=== PATIENT | female | born 1965 | race Caucasian/White ===

== ENCOUNTER → 2020-02-08 | Outpatient (CLI) | payer OTHER | END | disposition home or self-care (01) | LOC: CFH 15:11 | PROVIDERS: ATTEND Obstetrics & Gynecology Gynecology | DX: Z12.31 Encounter for screening mammogram for malignant neoplasm of breast (principal) | CPT/HCPCS: 77067 ==

== ENCOUNTER → 2020-03-10 | Outpatient (CLI) | payer OTHER ==
[~2020-03-10] MED LIST: ALBU8.5H8 INH; FLUT1DIS3 INH; LEVO125T PO; LIOT5TAB11 PO; ZAFI20TA12 PO
[2020-03-10 15:00] LABS: BASOPHILS % (AUTO) 1 % (0-1); EOSINOPHILS % (AUTO) 7 % (1-7); LYMPHOCYTES % (AUTO) 38 % (22-44); MEAN CORPUSCULAR HEMOGLOBIN 32.2 pg (27.0-34.8); MEAN CORPUSCULAR HGB CONC 33.8 g/dL (32.4-35.8); MEAN PLATELET VOLUME 8.7 fL (7.4-10.4); MONOCYTES % (AUTO) 8 % (2-9); NEUTROPHILS % (AUTO) 46 % (42-75); PLATELET COUNT 219 x10^3/uL (130-400); RED BLOOD COUNT 4.53 x10^6/uL (3.82-5.3); RED CELL DISTRIBUTION WIDTH 12.7 % (9.6-15.2)
[2020-03-10 15:03] LABS: MD NO
[2020-03-10 15:04] LABS: ALANINE AMINOTRANSFERASE 90 U/L (12-78); ALBUMIN 3.8 g/dL (3.4-5.0); ANION GAP 5 mmol/L (5-15); CALCIUM 8.9 mg/dL (8.5-10.1); CHLORIDE 107 mmol/L (98-107); CREATININE 0.93 mg/dL (0.55-1.02)
[2020-03-10 15:08] LABS: ALKALINE PHOSPHATASE 79 U/L (45-117); BILIRUBIN,TOTAL 0.3 mg/dL (0.2-1.0); TOTAL PROTEIN 7.6 g/dL (6.4-8.2)
[2020-03-10 15:45] LABS: MICROSCOPIC AUTO
== END | disposition home or self-care (01) ==
LOC: STAR 13:46
PROVIDERS: ATTEND Obstetrics & Gynecology Gynecology
DX: Z01.818 Encounter for other preprocedural examination (principal); N93.9 Abnormal uterine and vaginal bleeding, unspecified; N80.0 Endometriosis of uterus; N81.10 Cystocele, unspecified; R32 Unspecified urinary incontinence; N94.6 Dysmenorrhea, unspecified; N81.6 Rectocele
CPT/HCPCS: 36415; 71046; 80053; 81001; 84702; 85025; 87077; 87086; 93005

== ENCOUNTER 2020-03-20 05:40 | Day surgery (SDC) | payer OTHER ==
[~2020-03-20] VITALS: Ht 154.9 cm; Wt 98.0 kg
[2020-03-20] MEDS ORDERED: CHLORHEXIDINE 15 ML UDC MM ONE (06:30)
[2020-03-20] MEDS ORDERED: LIDOCAINE-MPF 1%, 2ML INFIL ONE (06:30)
[2020-03-20] MEDS ORDERED: LACTATED RINGERS 1,000 ML IV SCH (06:30)
[2020-03-20] MEDS ORDERED: MIDAZOLAM 1 MG/ML, 2ML ONE (07:17)
[2020-03-20] MEDS ORDERED: FENTANYL PF 250 MCG/5ML ONE ×2 (07:19→08:28)
[2020-03-20] MEDS ORDERED: PROPOFOL 10 MG/ML, 20ML ONE (07:20)
[2020-03-20] MEDS ORDERED: ROCURONIUM 10MG/ML,5ML ONE (07:21)
[2020-03-20] MEDS ORDERED: ACETAMINOPHEN 500 MG TABLET PO STA (07:21)
[2020-03-20] MEDS ORDERED: BUPIVACAINE/PF 0.25% ONE (07:21)
[2020-03-20] MEDS ORDERED: DIAZEPAM 5 MG TABLET PO STA (07:21)
[2020-03-20] MEDS ORDERED: MANNITOL PMX 20% 500 ML ONE (07:22)
[2020-03-20] MEDS ORDERED: EPINEPHRINE 1 MG/ML, 1ML ONE ×2 (07:22→08:44)
[2020-03-20] MEDS ORDERED: DIAZEPAM 5 MG TABLET ONE (07:25)
[2020-03-20] MEDS ORDERED: ACETAMINOPHEN 500 MG TABLET ONE (07:25)
[2020-03-20] MEDS ORDERED: CEFAZOLIN 1,000 MG ONE ×2 (07:42→07:49)
[2020-03-20] MEDS ORDERED: SUGAMMADEX 200 MG/2 ML IVPush ONE (07:42)
[2020-03-20] MEDS ORDERED: DEXAMETHASONE 4 MG/ML, 1ML ONE ×2 (07:42→07:49)
[2020-03-20] MEDS ORDERED: ONDANSETRON 2MG/ML, 2ML ONE (07:42)
[2020-03-20] MEDS ORDERED: BUPIVACAINE/PF-EPI 0.25% 1:200K INFIL ONE (07:58)
[2020-03-20] MEDS ORDERED: HYDROmorphone 1 MG/ML, 1ML INJ IVPush PRN (08:00)
[2020-03-20] MEDS ORDERED: DIAZEPAM 5 MG/ML, 2ML IVPush PRN (08:00)
[2020-03-20] MEDS ORDERED: FENTANYL PF 100 MCG/2ML IV PRN (08:00)
[2020-03-20] MEDS ORDERED: MIDAZOLAM 1 MG/ML, 2ML IV PRN (08:00)
[2020-03-20] MEDS ORDERED: ALBUTEROL SULFATE 2.5 MG/3 ML NPPB PRN (08:00)
[2020-03-20] MEDS ORDERED: EPHEDRINE 50 MG/ML, 1ML IVPush PRN (08:00)
[2020-03-20] MEDS ORDERED: LABETALOL 5MG/ML, 20ML IV PRN (08:00)
[2020-03-20] MEDS ORDERED: ONDANSETRON 2MG/ML, 2ML IVPush PRN (08:00)
[2020-03-20] MEDS ORDERED: PROMETHAZINE 12.5 MG SUPP PR PRN (08:00)
[2020-03-20] MEDS ORDERED: OXYcodone 5 MG/5 ML ORAL.SOL UDC PO PRN (08:00)
[2020-03-20] MEDS ORDERED: MEPERIDINE/PF 25MG/0.5ML IVPush PRN (08:00)
[2020-03-20] MEDS ORDERED: hydrALAzine 20 MG/ML, 1ML IV PRN (08:00)
[2020-03-20] MEDS ORDERED: PROMETHAZINE 25 MG/ML, 1ML IVPush PRN (08:00)
[2020-03-20] MEDS ORDERED: DIPHENHYDRAMINE 50 MG/ML, 1ML IVPush PRN (08:00)
[2020-03-20] MEDS ORDERED: LIDOCAINE/PF 1%, 30ML ONE (08:44)
[2020-03-20] MEDS ORDERED: NEOMY/POLYMYXIN B GU IRR. 1 ML ONE (08:51)
[2020-03-20] MEDS ORDERED: LIDOCAINE 1%-EPI 1:100K, 30ML INFIL ONE (08:55)
[2020-03-20] MEDS ORDERED: NEOMY/POLYMYXIN B GU IRR. 1 ML IRRIG ONE (08:55)
[2020-03-20] MEDS ORDERED: FENTANYL PF 100 MCG/2ML ONE (10:36)
== END 2020-03-20 18:00 | disposition home or self-care (01) ==
LOC: OUT 05:40
PROVIDERS: ATTEND Obstetrics & Gynecology Gynecology
DX: N93.9 Abnormal uterine and vaginal bleeding, unspecified (principal); N94.6 Dysmenorrhea, unspecified; N81.4 Uterovaginal prolapse, unspecified; N80.0 Endometriosis of uterus; N83.8 Other noninflammatory disorders of ovary, fallopian tube and broad ligament; R32 Unspecified urinary incontinence; J45.909 Unspecified asthma, uncomplicated; E89.0 Postprocedural hypothyroidism; Z20.828 Contact with and (suspected) exposure to other viral communicable diseases; Z79.890 Hormone replacement therapy; Z79.899 Other long term (current) drug therapy; Z85.850 Personal history of malignant neoplasm of thyroid; Z98.51 Tubal ligation status; Z98.890 Other specified postprocedural states
CPT/HCPCS: 36415; 57260; 57288; 57425; 58573; 86850; 86900; 87635; 88307; C1771; J0171; J0690; J1100; J2250; J2405; J2704; J3010; J7120; S2900